=== PATIENT | male | born 1985 | race African-American/Black ===

== ENCOUNTER 2021-01-25 17:56 | Emergency (ER) | payer MEDICAID ==
[~2021-01-25] VITALS: Ht 182.9 cm; Wt 80.0 kg
[2021-01-25 18:10] VITALS: BP 143/87
[2021-01-26] MEDS ORDERED: AMOX-424 MT (13:53)
[2021-01-26] MEDS ORDERED: IBUP-2029 MT (13:53)
[2021-01-26] MEDS ORDERED: TRAM50TA3 MT (13:53)
== END 2021-01-25 18:59 | disposition left against medical advice (07) ==
LOC: ER 17:56
DX: R68.89 Other general symptoms and signs (principal); Z53.21 Procedure and treatment not carried out due to patient leaving prior to being seen by health care provider

== ENCOUNTER 2021-01-26 12:58 | Emergency (ER) | payer MEDICAID ==
[~2021-01-26] VITALS: Ht 177.8 cm; Wt 77.0 kg
[2021-01-26] MEDS ORDERED: KETOROLAC 60MG/2ML VIAL IM ONE (13:45)
[2021-01-26] MEDS ORDERED: TRAMADOL 50MG TABLET PO ONE (13:45)
[2021-01-26] MEDS ORDERED: IBUP-2029 MT (13:53)
[2021-01-26] MEDS ORDERED: AMOX-424 MT (13:53)
[2021-01-26] MEDS ORDERED: TRAM50TA3 MT (13:53)
[2021-01-26 14:25] VITALS: BP 138/72
[2021-01-26] MEDS ORDERED: AMOXICILLIN/POTASSIUM CLAVULANATE 875/125MG TAB PO ONE (14:30)
== END 2021-01-26 14:27 | disposition home or self-care (01) ==
LOC: ER 12:58
DX: K04.7 Periapical abscess without sinus (principal)
CPT/HCPCS: 96372; 99283; J1885